=== PATIENT | female | born 1975 | race Caucasian/White ===

== ENCOUNTER 2021-11-16 22:06 | Inpatient (IN) ==
[2021-11-16 22:57] LABS: Basophils # (auto) 0.02 K/uL (0-0.2); Basophils % (auto) 0.2 %; Eosinophils # (auto) 0.01 K/uL (0-0.5); Eosinophils % (auto) 0.1 %; Hematocrit (blood only) 35.3 % (37-47); Immature Granulocytes # (auto) 0.02 K/uL (0.00-0.02); Immature Granulocytes % (auto) 0.2 %; Lymphocytes # (auto) 1.15 K/uL (1.2-3.4); Lymphocytes % (auto) 12.9 %; Mean Corpuscular Volume 91.2 fL (80-100); Mean Platelet Volume 9.1 fL (7.4-10.4); Monocytes # (auto) 0.93 K/uL (0.11-0.59); Monocytes % (auto) 10.5 %; Neutrophils # (auto) 6.76 K/uL (1.4-6.5); Neutrophils % (auto) 76.1 %; Platelet Count 227 K/uL (130-400); RDW Coefficient of Variation 16.8 % (11.5-14.5); RDW Standard Deviation 53.7 fL (36.4-46.3); Red Blood Count 3.87 M/uL (4.2-5.4); White Blood Count 8.89 K/uL (4.8-10.8)
[2021-11-16 23:19] LABS: Acetaminophen < 3 ug/ml (10-30); Salicylate < 3.0 mg/dl (3.0-30)
[2021-11-16 23:20] LABS: Albumin Globulin Ratio 1.4 (0.9-2); Albumin Level 4.2 gm/dl (3.4-5.0); Bilirubin,Total 0.5 mg/dl (0.2-1.0); Calcium 9.3 mg/dl (8.5-10.1); Creatinine Clr Calc Pharmacy 96.1 ml/min; Est GFR (African American) 136.4 ml/min; Est GFR (Non-African American) 117.7 ml/min; Potassium 3.8 mmol/L (3.5-5.1); Total Protein 7.2 gm/dl (6.0-8.3)
[2021-11-16 23:21] LABS: Pregnancy Test, Serum Negative (Negative)
[2021-11-16] MEDS ORDERED: SODIUM CHLORIDE 0.9% 1000ML 1,000 ML IV SCH (23:30)
[2021-11-16] MEDS ORDERED: LORazepam 2 MG/1 ML VIAL IM STA (23:57)
[2021-11-16] MEDS ORDERED: LORazepam 2 MG/1 ML VIAL ONE (23:58)
--- NOTE | 2021-11-16 23:58 | Emergency Department Note ---
History of Present Illness General Chief complaint: Mental Health Evaluation Time Seen by Provider: 11/16/21 23:00 Source: police and other Mode of arrival: ambulatory Limitations: patient cooperation History of Present Illness Provider complaint: Mental health evaluation This is a 46-year-old female brought in by [place] [employer] police as a 302 after patient ran away from [facility] rehab facility and found her agitated and confused and contacted police. Police came to her house and state the patient was repetitive, making bizarre statements, agitated, needed to be physically restrained by them, and her was unable to calm her down. denied any prior similar events and only prior mental health history was that of anxiety. Patient refuses to discuss why police were called and why she is here. She states "I do not want my story to change". Patient mitts to history of alcohol abuse, does not know what medication she has been given at [facility] and says "they have record of that not me". Patient states she has previously gone through alcohol withdrawal and does not feel that is happening to her. Patient denies any other concern for illness or injury. She states she does vape. Accompanying medical list from [facility] includes Prozac, vitamin B1, vitamin B12, folic acid, daily multivitamin, clonidine, Vistaril, and Valium. Pt seen during a time of high acuity and national emergency pandemic while wearing PPE. Home Medications Medication Instructions Recorded Confirmed Type Vitamin B-1 PO DAILY 11/16/21 History fluoxetine mg PO DAILY 11/16/21 History folic acid PO DAILY 11/16/21 History Allergies Allergy/AdvReac Type Severity Reaction Status Date / Time artichoke Allergy Swelling Verified 11/16/21 22:48 of Lip/Tongue/Throat cat dander Allergy Unknown Verified 11/16/21 22:48 Past Med/Surg History Medical History (Updated 11/17/21 @ 09:03 by Ирина Hudson DO) Alcohol abuse Anxiety Social History Smoking Status: Current every day smoker Tobacco Type: E-cigarettes / Vaping Hx Alcohol Use: Yes Alcohol type: beer Hx Substance Use: No Preferred Language: Khmer Current Living Situation Comment: UNKNOWN WOULD NOT ANSWER Assistive Devices: None Review of Systems See HPI for pertinent positives & negatives. All systems reviewed & are unremarkable except as noted in HPI & below Physical Exam Vital Signs Vital Signs - 24 hr 11/16/21 22:30 11/17/21 00:32 11/17/21 00:41 Temperature 37.1 C Temperature Source Oral Pulse Rate 109 H 92 H Pulse Rate [Right Finger] 89 Pulse Rhythm [Right Finger] Regular Pulse Strength [Right Finger] Normal Respiratory Rate 20 15 22 Respiratory Effort / Characteristics Non-Labored Spontaneous Non-Labored Respiratory Depth Normal Normal Respiratory Pattern Regular Blood Pressure 172/111 H Blood Pressure [Left Arm] 146/99 H Blood Pressure Mean 131 Blood Pressure Mean [Left Arm] 114 Blood Pressure Position [Left Arm] Sitting Pulse Oximetry 99 100 99 Oxygen Delivery Method Room Air Room Air Room Air Sepsis New/Unexplained Change in Mental Status N/A Sepsis Action Taken by Nursing No Action Required 11/17/21 00:45 11/17/21 01:00 11/17/21 01:15 Temperature Temperature Source Pulse Rate 104 H 96 H 103 H Pulse Rate [Right Finger] Pulse Rhythm [Right Finger] Pulse Strength [Right Finger] Respiratory Rate 21 20 16 Respiratory Effort / Characteristics Respiratory Depth Respiratory Pattern Blood Pressure Blood Pressure [Left Arm] Blood Pressure Mean Blood Pressure Mean [Left Arm] Blood Pressure Position [Left Arm] Pulse Oximetry 100 99 99 Oxygen Delivery Method Room Air Room Air Room Air Sepsis New/Unexplained Change in Mental Status Sepsis Action Taken by Nursing 11/17/21 01:30 11/17/21 01:45 11/17/21 02:00 Temperature Temperature Source Pulse Rate 120 H 94 H 96 H Pulse Rate [Right Finger] Pulse Rhythm [Right Finger] Pulse Strength [Right Finger] Respiratory Rate 20 23 20 Respiratory Effort / Characteristics Respiratory Depth Respiratory Pattern Blood Pressure Blood Pressure [Left Arm] Blood Pressure Mean Blood Pressure Mean [Left Arm] Blood Pressure Position [Left Arm] Pulse Oximetry 99 98 95 Oxygen Delivery Method Room Air Room Air Room Air Sepsis New/Unexplained Change in Mental Status Sepsis Action Taken by Nursing Patient refused to allow me to examine her GENERAL: alert, well appearing, well nourished, no distress, non-toxic EYE EXAM: normal conjunctiva, PERRL and EOM's grossly intact NEURO EXAM: Normal sensorium, cranial nerves II-XII grossly intact, normal speech, no gross weakness of arms, no gross weakness of legs. Gross sensation intact. Course Course 2345: Nursing staff finally able to obtain IV access on the patient due to concern for hyponatremia and altered mentation as described in the 302 petition. Given patient's history of alcohol abuse, concern for hyponatremia possibly contributing to agitation and confusion as reported by PSP from earlier today. 2355: Patient now ripped out her own IV. 0023: I was notified by the associate professor of radiology that a tick was found in the patient's sheets when she was moved to undergo CT scan. 0055: Discussed with Dr. Fraser. Administered Medications Enoxaparin Sodium (Enoxaparin Inj 40 Mg/0.4 Ml Syr) 40 mg SQ Q24H HOLDEN Stop: 12/17/21 08:59 Last Admin: 11/17/21 08:01 Dose: Not Given Documented by: [id number] Folic Acid (Folic Acid 1 Mg Tab) 1 mg PO QA HOLDEN Stop: 12/17/21 08:59 Last Admin: 11/17/21 08:00 Dose: 1 mg Documented by: [id number] Thiamine HCl (Thi[facility] Hcl 100 Mg Tab) [facility] Stop: 12/17/21 08:59 Last Admin: 11/17/21 08:01 Dose: 100 mg Documented by: [id number] Discontinued Medications Gabapentin (Gabapentin 1200mg Alcohol Withdrawal Load) 1 ea PO NOW STA; Protocol Stop: 11/17/21 02:15 Last Admin: 11/17/21 02:47 Dose: Not Given Documented by: [id number] Gabapentin (Gabapentin 600 Mg Tab) 1,200 mg PO NOW ONE Stop: 11/17/21 05:16 Last Admin: 11/17/21 05:58 Dose: 1,200 mg Documented by: [id number] Sodium Chloride (Nss 1000ml) 1,000 mls @ 125 mls/hr IV .Q8H HOLDEN Stop: 12/16/21 23:29 Last Admin: 11/17/21 02:47 Dose: Not Given Documented by: [id number] Lorazepam (Lorazepam 2 Mg/1 Ml Vial) 2 mg IM NOW STA Stop: 11/16/21 23:58 Last Admin: 11/17/21 00:08 Dose: 2 mg Documented by: [id number] Lorazepam (Lorazepam 2 Mg/1 Ml Vial) Confirm Administered Dose 2 mg .ROUTE .STK- MED ONE Stop: 11/16/21 23:59 Last Admin: 11/17/21 00:08 Dose: Not Given Documented by: [id number] Medical Decision Making Differential Diagnosis Differential diagnoses includes but is not limited to toxic, metabolic, infectious, traumatic, cardiac, neurologic, hematologic, psychiatric and inflammatory etiologies. Medical Records Attestation: I reviewed the patient's medical records. Home Medications Current Medication List: was personally reviewed by me Laboratory Data Attestation: I reviewed the patient's lab results. Result diagrams: 11/17/21 06:46 11/17/21 06:46 Lab Results 11/16/21 11/16/21 11/16/21 Range/Units 22:44 22:44 22:44 WBC 8.89 (4.8-10.8) K/uL RBC 3.87 L (4.2-5.4) M/uL Hgb 12.0 (12.0-16.0) g/dL Hct 35.3 L (37-47) % MCV 91.2 (80-100) fL MCH 31.0 (25-34) pg MCHC 34.0 (32-36) g/dL RDW Std Deviation 53.7 H (36.4-46.3) fL RDW Coeff of Alejo 16.8 H (11.5-14.5) % Plt Count 227 (130-400) K/uL MPV 9.1 (7.4-10.4) fL Immature Gran % (Auto) 0.2 % Neut % (Auto) 76.1 % Lymph % (Auto) 12.9 % Stephens % (Auto) 10.5 % Eos % (Auto) 0.1 % Baso % (Auto) 0.2 % Neut # (Auto) 6.76 H (1.4-6.5) K/uL Lymph # (Auto) 1.15 L (1.2-3.4) K/uL Stephens # (Auto) 0.93 H (0.11-0.59) K/uL Eos # (Auto) 0.01 (0-0.5) K/uL Baso # (Auto) 0.02 (0-0.2) K/uL Immature Gran # (Auto) 0.02 (0.00-0.02) K/uL Sodium 128 L (136-145) mmol/L Potassium 3.8 (3.5-5.1) mmol/L Chloride 94 L (98-107) mmol/L Carbon Dioxide 26 (21-32) mmol/L Anion Gap 8 (3-11) BUN 9 (6-23) mg/dl Creatinine 0.50 L (0.6-1.2) mg/dl Est Cr Clr Drug Dosing 96.1 ml/min Est GFR ( Amer) 136.4 ml/min Est GFR (Non-Af Amer) 117.7 ml/min BUN/Creatinine Ratio 18.0 (10-20) Glucose 117 H (70-99(Fasting)) mg/dl Calcium 9.3 (8.5-10.1) mg/dl Total Bilirubin 0.5 (0.2-1.0) mg/dl AST 21 (13-39) U/L ALT 12 (7-52) U/L Alkaline Phosphatase 45 (34-104) U/L Total Protein 7.2 (6.0-8.3) gm/dl Albumin 4.2 (3.4-5.0) gm/dl Globulin 3.0 (2.5-4.0) gm/dl Albumin/Globulin Ratio 1.4 (0.9-2) TSH 1.215 (0.300-4.500) uIu/ml HCG, Qual (Negative) Salicylates (3.0-30) mg/dl Acetaminophen (10-30) ug/ml Ethyl Alcohol mg/dL (<10.0) mg/dl Lyme Disease IgG Ab (Negative) Lyme Disease IgM Ab (Negative) SARS-CoV-2, RNA, NAAT (NEGATIVE) 11/16/21 11/16/21 11/16/21 Range/Units 22:44 22:44 22:44 WBC (4.8-10.8) K/uL RBC (4.2-5.4) M/uL Hgb (12.0-16.0) g/dL Hct (37-47) % MCV (80-100) fL MCH (25-34) pg MCHC (32-36) g/dL RDW Std Deviation (36.4-46.3) fL RDW Coeff of Alejo (11.5-14.5) % Plt Count (130-400) K/uL MPV (7.4-10.4) fL Immature Gran % (Auto) % Neut % (Auto) % Lymph % (Auto) % Stephens % (Auto) % Eos % (Auto) % Baso % (Auto) % Neut # (Auto) (1.4-6.5) K/uL Lymph # (Auto) (1.2-3.4) K/uL Stephens # (Auto) (0.11-0.59) K/uL Eos # (Auto) (0-0.5) K/uL Baso # (Auto) (0-0.2) K/uL Immature Gran # (Auto) (0.00-0.02) K/uL Sodium (136-145) mmol/L Potassium (3.5-5.1) mmol/L Chloride (98-107) mmol/L Carbon Dioxide (21-32) mmol/L Anion Gap (3-11) BUN (6-23) mg/dl Creatinine (0.6-1.2) mg/dl Est Cr Clr Drug Dosing ml/min Est GFR ( Amer) ml/min Est GFR (Non-Af Amer) ml/min BUN/Creatinine Ratio (10-20) Glucose (70-99(Fasting)) mg/dl Calcium (8.5-10.1) mg/dl Total Bilirubin (0.2-1.0) mg/dl AST (13-39) U/L ALT (7-52) U/L Alkaline Phosphatase (34-104) U/L Total Protein (6.0-8.3) gm/dl Albumin (3.4-5.0) gm/dl Globulin (2.5-4.0) gm/dl Albumin/Globulin Ratio (0.9-2) TSH (0.300-4.500) uIu/ml HCG, Qual Negative (Negative) Salicylates < 3.0 L (3.0-30) mg/dl Acetaminophen < 3 L (10-30) ug/ml Ethyl Alcohol mg/dL < 10.0 (<10.0) mg/dl Lyme Disease IgG Ab (Negative) Lyme Disease IgM Ab (Negative) SARS-CoV-2, RNA, NAAT (NEGATIVE) 11/16/21 11/16/21 Range/Units 22:44 Unknown WBC (4.8-10.8) K/uL RBC (4.2-5.4) M/uL Hgb (12.0-16.0) g/dL Hct (37-47) % MCV (80-100) fL MCH (25-34) pg MCHC (32-36) g/dL RDW Std Deviation (36.4-46.3) fL RDW Coeff of Alejo (11.5-14.5) % Plt Count (130-400) K/uL MPV (7.4-10.4) fL Immature Gran % (Auto) % Neut % (Auto) % Lymph % (Auto) % Stephens % (Auto) % Eos % (Auto) % Baso % (Auto) % Neut # (Auto) (1.4-6.5) K/uL Lymph # (Auto) (1.2-3.4) K/uL Stephens # (Auto) (0.11-0.59) K/uL Eos # (Auto) (0-0.5) K/uL Baso # (Auto) (0-0.2) K/uL Immature Gran # (Auto) (0.00-0.02) K/uL Sodium (136-145) mmol/L Potassium (3.5-5.1) mmol/L Chloride (98-107) mmol/L Carbon Dioxide (21-32) mmol/L Anion Gap (3-11) BUN (6-23) mg/dl Creatinine (0.6-1.2) mg/dl Est Cr Clr Drug Dosing ml/min Est GFR ( Amer) ml/min Est GFR (Non-Af Amer) ml/min BUN/Creatinine Ratio (10-20) Glucose (70-99(Fasting)) mg/dl Calcium (8.5-10.1) mg/dl Total Bilirubin (0.2-1.0) mg/dl AST (13-39) U/L ALT (7-52) U/L Alkaline Phosphatase (34-104) U/L Total Protein (6.0-8.3) gm/dl Albumin (3.4-5.0) gm/dl Globulin (2.5-4.0) gm/dl Albumin/Globulin Ratio (0.9-2) TSH (0.300-4.500) uIu/ml HCG, Qual (Negative) Salicylates (3.0-30) mg/dl Acetaminophen (10-30) ug/ml Ethyl Alcohol mg/dL (<10.0) mg/dl Lyme Disease IgG Ab Negative (Negative) Lyme Disease IgM Ab Negative (Negative) SARS-CoV-2, RNA, NAAT NEGATIVE (NEGATIVE) Imaging Data Radiologist's Impression: Head CT 11/16/21 23:28 CT head/brain wo con CLINICAL HISTORY: 46 years-old Female with ams. Acutely altered mental status TECHNIQUE: Multiple axial CT images of the head were obtained without contrast. A dose lowering technique was utilized adhering to the principles of ALARA. CT DOSE: 537.48 mGy.cm COMPARISON: None. FINDINGS: No acute intracranial hemorrhage, midline shift, intracranial mass, hydrocephalus, territorial ischemia or abnormal extra-axial collection. The calvarium is intact. Note is made of a metopic suture. The paranasal sinuses, mastoid air cells, and middle ear cavities are clear. IMPRESSION: No acute intracranial abnormality. ACT 112: Negative or not required by law. The above report was generated using voice recognition software. It may contain grammatical, syntax or spelling errors. Electronically signed by: Sorin Loyola M.D. 11/17/2021 6:[address] HEAD: No acute intracranial hemorrhage, extra-axial fluid collection or mass-effect. Ferrer-white differentiation is preserved. Under pneumatization of the frontal sinuses. Radiologist: Elsy Gudino MD MDM Narrative This is a 46-year-old female who presents emergency department with concern for abnormal behavior, agitation, and history of alcohol abuse. Patient brought in as a 302 by police due to agitated and abnormal behavior per 's report. No evidence of trauma on limited exam and patient refused additional bedside exam. Vital signs stable. Patient was initially noncompliant. Patient was given Ativan IM to help decrease agitation and to allow for additional testing to better evaluate her condition including head CT. Head CT unremarkable. Patient was found to be hyponatremic, no old labs for comparison. Given history of alcohol abuse it is unclear if this is related to her abuse of alcohol or evolving withdrawal. Given her accompanying paranoia and intermittent confusion although patient was oriented to person, place, and time during my initial evaluation, case was discussed with hospitalist for additional evaluation and management. No evidence of delirium tremens at this time. An order was placed for continuous cardiac monitoring. The monitor shows a rate of _102_ with _sinus tachycardia_ rhythm. Impression & Plan Altered mental status, Alcohol abuse, Hyponatremia Discharge Plan Visit Data Chief Complaint: Mental Health Evaluation ED Provider: Ирина Hudson Discharge Problem: Altered mental status, Alcohol abuse, Hyponatremia Patient Disposition: Admitted As Inpatient Discharge Instructions Interventions: ED Discharge Assessment Last Done: 11/17/21 04:27 Discharge Problem: Altered mental status Qualifiers: Altered mental status type: unspecified Qualified Code(s): R41.82 - Altered mental status, unspecified
[2021-11-17 01:33] LABS: Lyme Ab IgG w/WB Rflx Negative (Negative); Lyme Ab IgM w/WB Rflx Negative (Negative)
[2021-11-17] MEDS ORDERED: GABAPENTIN 1200MG ALCOHOL WITHDRAWAL LOAD PO STA (02:14)
[2021-11-17] MEDS ORDERED: LORazepam 2 MG/1 ML VIAL IM PRN (02:15)
[2021-11-17] MEDS ORDERED: ONDANSETRON INJ 2 MG/ML 2 ML VIAL IV PRN (04:52)
[2021-11-17] MEDS ORDERED: NITROGLYCERIN SL 0.4 MG/TAB TAB SL PRN (04:52)
[2021-11-17] MEDS ORDERED: LORazepam 1 MG TAB PO PRN (04:52)
[2021-11-17 05:01] LABS: Appearance Urine Clear (Clear); Bacteria Urine Automated Negative (Negative); Bilirubin Urine Negative (Negative); Blood Urine Trace (Negative); Cast Urine Automated 0 /lpf (0-5); Color Urine Yellow; Glucose Urine UA Negative (Negative); Ketones Urine Trace (Negative); Leukocyte Esterase Urine Negative (Negative); Nitrite Urine Negative (Negative); Protein Urine Negative (Negative); RBC Urine Automated 0-4 /hpf (0-4); Specific Gravity Urine 1.006 (1.000-1.030); Urobilinogen Urine Negative (Negative); WBC Urine Automated 0 /hpf (0-5)
[2021-11-17] MEDS ORDERED: GABAPENTIN 600 MG TAB PO ONE (05:15)
[2021-11-17 05:28] LABS: Amphetamines+Metham, Urine Neg (Neg); Barbiturates, Urine Neg (Neg); Benzodiazepine, Urine Neg (Neg); Cocaine, Urine Neg (Neg); MDMA (Ecstacy), Urine Neg (Neg); Methadone, Urine Neg (Neg); Opiate, Urine Neg (Neg); Phencyclidine, Urine Neg (Neg)
--- NOTE | 2021-11-17 06:49 | CT Scan Report ---
CT head/brain wo con CLINICAL HISTORY: 46 years-old Female with ams. Acutely altered mental status TECHNIQUE: Multiple axial CT images of the head were obtained without contrast. A dose lowering tech nique was utilized adhering to the principles of ALARA. CT DOSE: 537.48 mGy.cm COMPARISON: None. FINDINGS: No acute intracranial hemorrhage, midline shift, intracranial mass, hydrocephalus, territorial ischem ia or abnormal extra-axial collection. The calvarium is intact. Note is made of a metopic suture. The paranasal sinuses, mastoid air cells, and middle ear cavities are clear. IMPRESSION: No acute intracranial abnormality. ACT 112: Negative or not required by law. The above report was generated using voice recognition software. It may contain grammatical, syntax o r spelling errors. Electronically signed by: Sorin Loyola M.D. 11/17/2021 6:47 AM
[2021-11-17 07:12] LABS: Basophils # (auto) 0.01 K/uL (0-0.2); Basophils % (auto) 0.2 %; Eosinophils # (auto) 0.03 K/uL (0-0.5); Eosinophils % (auto) 0.5 %; Hematocrit (blood only) 36.3 % (37-47); Hemoglobin 12.5 g/dL (12.0-16.0); Immature Granulocytes # (auto) 0.01 K/uL (0.00-0.02); Immature Granulocytes % (auto) 0.2 %; Lymphocytes # (auto) 1.13 K/uL (1.2-3.4); Lymphocytes % (auto) 18.2 %; Mean Corpuscular Hemoglobin 31.5 pg (25-34); Mean Corpuscular Hgb Conc 34.4 g/dL (32-36); Mean Corpuscular Volume 91.4 fL (80-100); Mean Platelet Volume 9.2 fL (7.4-10.4); Monocytes % (auto) 12.9 %; Neutrophils # (auto) 4.22 K/uL (1.4-6.5); Platelet Count 220 K/uL (130-400); RDW Coefficient of Variation 16.7 % (11.5-14.5); RDW Standard Deviation 54.2 fL (36.4-46.3); Red Blood Count 3.97 M/uL (4.2-5.4)
[2021-11-17 07:28] LABS: Albumin Level 4.1 gm/dl (3.4-5.0); Bilirubin Direct 0.1 mg/dl (0-0.2); Bilirubin,Total 0.5 mg/dl (0.2-1.0); Calcium 9.2 mg/dl (8.5-10.1); Creatinine Clr Calc Pharmacy 123.1 ml/min; Est GFR (African American) 143.4 ml/min; Est GFR (Non-African American) 123.7 ml/min; Magnesium 1.9 mg/dl (1.7-2.4); Potassium 3.5 mmol/L (3.5-5.1); Total Protein 7.1 gm/dl (6.0-8.3)
--- NOTE | 2021-11-17 07:58 | History and Physical Report ---
DATE OF ADMISSION: 11/16/2021. CHIEF COMPLAINT: Alcoholism, agitation. HISTORY OF PRESENT ILLNESS: This is a 46-year-old female with past medical history significant for anxiety, alcoholism, who was brought in because of agitation. The patient seems to have been admitted to [facility] rehab facility seems on last Monday for alcoholism and looks like she eloped and her found her agitated and confused and contacted police and she was making some repetitive statements, confused even for the police and they had to restrain her to calm her down and did 302 and brought her here. Initially, she did not give much history to the ER physician. She received some IM Ativan. She pulled out the IV line. Currently, resting comfortably and hemodynamically stable. She says she did not go home, she was just walking uphill from rehab when the oceanographer physical caught her and brought her here. Denies any headache. No blurred visions. Denies any earache or runny nose or sore throat. No nausea, no chest pain, no shortness of breath, no cough, no fevers, no abdominal pain. Normal bowel and bladder movements as per the patient. The patient states her last drink was last Monday. Refused to have a new IV line. Okay to stay in the hospital for alcohol withdrawals. ALLERGIES: CAT DANDER. PAST MEDICAL HISTORY: As mentioned above. PAST SURGICAL HISTORY: . MEDICATIONS: The patient is on fluoxetine, folic acid, and thiamine. FAMILY HISTORY: Unknown. SOCIAL HISTORY: Drinks alcohol, vapes cigarettes with menthol. Denies any drug use. REVIEW OF SYSTEMS: As per HPI. Rest of review of systems is negative. PHYSICAL EXAMINATION: GENERAL: The patient is of moderate build, not in acute distress. VITAL SIGNS: Temperature 37.1, pulse 104, respiratory rate 21, blood pressure 146/99, oxygen 100% on room air. HEENT: Pupils equal, round and reactive to light. Oral mucosa moist. NECK: No JVD. No neck masses. CARDIOVASCULAR: S1 and S2 heard. Regular rate and rhythm. No murmur, no gallop. RESPIRATORY SYSTEM: Normal AP diameter. No accessory muscle use. No wheezing, no crackles. ABDOMEN: Soft, bowel sounds present, nontender, no distention. CENTRAL NERVOUS SYSTEM: Cranial nerves II-XII grossly intact, nonfocal. EXTREMITIES: No edema, no erythema. LABORATORY DATA: WBC 8.8, hemoglobin 12, hematocrit 35.3, platelets 227. Sodium 128, potassium 3.8, chloride 94, bicarbonate 26, BUN 9, creatinine 0.5, serum glucose 117, calcium 9.3, total bilirubin 0.5, AST 21, ALT 22, alkaline phosphatase 45. TSH 1.2. HCG qualitative negative. Salicylate less than 3, acetaminophen less than 3. Ethyl alcohol less than 10. Lyme disease IgG and IgM negative. SARS-CoV-2 RNA negative. IMAGING DATA: CT of the head, preliminary report unremarkable. ASSESSMENT AND PLAN: This 46-year-old female presents with agitation, history of alcoholism, brought in for agitation. 1. History of alcoholism: Monitor for alcohol withdrawal. Currently, took out the IV line. We will place her on gabapentin p.o. protocol and Ativan p.o. protocol and IM Ativan p.r.n. thiamine p.o. and folic acid p.o. and closely monitor in [facility] tele. 2. Agitation: Could be from alcohol withdrawal, could be from underlying psychiatric illness. She is on fluoxetine for anxiety . Consult psychiatry in the a.m. for further recommendations. Closely monitor in the med tele. One on one observation. 3. Hyponatremia: Received fluids in the ER. Currently, does not have IV line. Will follow serum osmolality in the next labs and urine osmolality and urine sodium levels and follow the repeat labs in the a.m. probably from her beer potomania from alcoholism. 5. Deep venous thrombosis prophylaxis: Sequential compression devices for now. DISPOSITION: Closely monitor in the [facility] tele. PT/OT prior to discharge. Social service to help with discharge planning. Level 1 full code. Job ID: [id number] [facility]
[2021-11-17] MEDS: FOLIC ACID 1 MG TAB PO SCH (08:00)
[2021-11-17] MEDS: ENOXAPARIN INJ 40 MG/0.4 ML SYR SQ SCH (08:01)
[2021-11-17] MEDS: THIAMINE HCL 100 MG TAB PO SCH (08:01)
[2021-11-17] MEDS: GABAPENTIN 600 MG TAB PO SCH ×2 (11:31→17:36)
--- NOTE | 2021-11-17 11:43 | Hospitalist Progress Note ---
Date of Service November 17, 2021 Assessment & Plan (1) Hyponatremia: (2) Alcohol abuse: (3) Anxiety: Plan: Alcohol abuse- She was voluntarily in [facility] on Monday before she left. States last drink Monday. Low risk of withdrawal at this point if her history is correct. Continue alcohol withdrawal protocol for now. Continue folate, thiamine, multivitamin. Psych evaluation pending Agitation- CT head unremarkable, labs including toxicology not significant. Currently calm and cooperative. On 1:1 currently. Psych evaluation pending. Hyponatremia- improved with IVF, recheck in am Anxiety- On prozac, will continue DVT propylaxis- sc lovenox Dispo- Pending psych evaluation Admission and Anticipated Discharge Date Admission Date: November 17, 2021 Subjective Patient was seen and examined at bedside. On 1:1. States she feels scared that she does not know what is going on, that there is a staff in her room all the time and she does not know why. States she remembers everything up until now. States she checked in voluntarily at [facility] on Monday [place] and then went back in. She again went out and called 911. She denies any fever, chills, chest pain, shortness of breath, nausea, vomiting, diarrhea. States her last drink was on Monday. Vapes while drinking but denies any other substance abuse. I reassured her and explained her the plan. She wanted me to revisit her later today. Physical Exam Physical Exam: General: Lying comfortably in bed, not in distress, on room air HEENT: EOMI, NATALIA, MMM Chest: Clear breath sounds bilaterally, no wheezes or crackles CVS: Regular rate and rhythm, normal heart sounds, no murmur Abdomen: Soft, non tender, not distended, normal bowel sounds Neuro: Awake, alert, oriented, conversing well, non focal Extremities: No cyanosis, clubbing or edema Results & Data Results & Data ([facility]) Vital Signs (Past 12 Hours) Vital Signs Temp Pulse Pulse Resp BP BP BP 11/17/21 11:29 37 C 81 20 113/77 11/17/21 07:54 36.7 C 108 H 20 111/74 11/17/21 07:23 62 11/17/21 05:42 103 H 11/17/21 04:53 36.6 C 95 H 16 108/74 11/17/21 04:27 88 16 108/71 11/17/21 04:00 91 H 16 11/17/21 02:45 93 H 20 11/17/21 02:30 97 H 19 11/17/21 02:15 96 H 19 11/17/21 02:00 96 H 20 11/17/21 01:45 94 H 23 11/17/21 01:30 120 H 20 11/17/21 01:15 103 H 16 11/17/21 01:00 96 H 20 11/17/21 00:45 104 H 21 11/17/21 00:41 89 22 146/99 H 11/17/21 00:32 92 H 15 Pulse Ox 11/17/21 11:29 98 11/17/21 07:54 100 11/17/21 07:23 11/17/21 05:42 11/17/21 04:53 100 11/17/21 04:27 100 11/17/21 04:00 99 11/17/21 02:45 98 11/17/21 02:30 93 11/17/21 02:15 92 11/17/21 02:00 95 11/17/21 01:45 98 11/17/21 01:30 99 11/17/21 01:15 99 11/17/21 01:00 99 11/17/21 00:45 100 11/17/21 00:41 99 11/17/21 00:32 100 Laboratory Results Short CBC 11/16/21 11/17/21 Range/Units 22:44 06:46 WBC 8.89 6.20 (4.8-10.8) K/uL Hgb 12.0 12.5 (12.0-16.0) g/dL Hct 35.3 L 36.3 L (37-47) % Plt Count 227 220 (130-400) K/uL BMP 11/16/21 11/17/21 22:44 06:46 Sodium 128 L 131 L Potassium 3.8 3.5 Chloride 94 L 98 Carbon Dioxide 26 25 BUN 9 6 Creatinine 0.50 L 0.43 L Glucose 117 H 96 Calcium 9.3 9.2 Liver Function 11/16/21 11/17/21 Range/Units 22:44 06:46 Total Bilirubin 0.5 0.5 (0.2-1.0) mg/dl Direct Bilirubin 0.1 (0-0.2) mg/dl AST 21 22 (13-39) U/L ALT 12 13 (7-52) U/L Alkaline Phosphatase 45 44 (34-104) U/L Albumin 4.2 4.1 (3.4-5.0) gm/dl Urine 11/17/21 Range/Units 04:49 Urine Color Yellow Urine Appearance Clear (Clear) Urine pH 7.0 (4.5-7.5) Ur Specific [place] 1.006 (1.000-1.030) Urine Protein Negative (Negative) Urine Glucose (UA) Negative (Negative) Diagnostic Findings Head CT 11/16/21 23:28 CT head/brain wo con CLINICAL HISTORY: 46 years-old Female with ams. Acutely altered mental status TECHNIQUE: Multiple axial CT images of the head were obtained without contrast. A dose lowering technique was utilized adhering to the principles of ALARA. CT DOSE: 537.48 mGy.cm COMPARISON: None. FINDINGS: No acute intracranial hemorrhage, midline shift, intracranial mass, hydrocephalus, territorial ischemia or abnormal extra-axial collection. The calvarium is intact. Note is made of a metopic suture. The paranasal sinuses, mastoid air cells, and middle ear cavities are clear. IMPRESSION: No acute intracranial abnormality. ACT 112: Negative or not required by law. The above report was generated using voice recognition software. It may contain grammatical, syntax or spelling errors. Electronically signed by: Sorin Loyola M.D. 11/17/2021 6:47 AM Medications Administered Current Inpatient Medications Enoxaparin Sodium (Enoxaparin Inj 40 Mg/0.4 Ml Syr) 40 mg SQ Q24H [facility] Stop: 12/17/21 08:59 Last Admin: 11/17/21 08:01 Dose: Not Given Documented by: Fluoxetine HCl (Fluoxetine Hcl 20 Mg Cap) 40 mg PO QAM [facility] Stop: 12/17/21 11:44 Folic Acid (Folic Acid 1 Mg Tab) 1 mg PO QAM [facility] Stop: 12/17/21 08:59 Last Admin: 11/17/21 08:00 Dose: 1 mg Documented by: Gabapentin (Gabapentin 600 Mg Tab) 600 mg PO Q6H [facility] Stop: 11/17/21 18:01 Last Admin: 11/17/21 11:31 Dose: 600 mg Documented by: Gabapentin (Gabapentin 600 Mg Tab) 600 mg PO Q8H [facility] Stop: 11/18/21 22:01 Gabapentin (Gabapentin 600 Mg Tab) 600 mg PO Q12H [facility] Stop: 11/19/21 22:01 Gabapentin (Gabapentin 600 Mg Tab) 600 mg PO Q24H [facility] Stop: 11/20/21 22:01 Lorazepam (Lorazepam 2 Mg/1 Ml Vial) 2 mg IM Q2H PRN PRN Reason: Agitation Stop: 12/17/21 02:14 Lorazepam (Lorazepam 1 Mg Tab) 1 - 3 mg PO UD PRN; Protocol PRN Reason: EtoH Withdrawal AWSS 6-10+ Stop: 12/17/21 04:51 Nitroglycerin (Nitroglycerin Sl 0.4 Mg/Tab Tab) 0.4 mg SL UD PRN PRN Reason: Chest Pain Stop: 12/17/21 04:51 Ondansetron HCl (Ondansetron Inj 2 Mg/Ml 2 Ml Vial) 4 mg IV Q6H PRN PRN Reason: Nausea Stop: 12/17/21 04:51 Thiamine HCl (Thiamine Hcl 100 Mg Tab) 100 mg PO QAM [facility] Stop: 12/17/21 08:59 Last Admin: 11/17/21 08:01 Dose: 100 mg Documented by:
[2021-11-17] MEDS ORDERED: FLUoxetine HCL 20 MG CAP PO SCH (11:45)
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
--- NOTE | 2021-11-18 06:07 | Electrocardiogram Report ---
Test Reason : Blood Pressure : / mmHG Vent. Rate : 094 BPM Atrial Rate : 094 BPM P-R Int : 172 ms QRS Dur : 082 ms QT Int : 396 ms P-R-T Axes : 071 086 071 degrees QTc Int : 495 ms Normal sinus rhythm Prolonged QT Abnormal ECG No previous ECGs available Confirmed by Aaron Samaniego ([id number]) on 11/18/2021 6:07:01 AM Referred By: REFERRED SELF Confirmed By:Aaron Samaniego
[2021-11-18] MEDS: GABAPENTIN 600 MG TAB PO SCH ×3 (06:12→21:25)
[2021-11-18 08:29] LABS: BUN Creatinine Ratio 14.3 (10-20); Calcium 9.3 mg/dl (8.5-10.1); Creatinine Clr Calc Pharmacy 108.1 ml/min; Est GFR (African American) 137.3 ml/min; Est GFR (Non-African American) 118.5 ml/min; Phosphorus 4.2 mg/dl (2.5-4.9); Potassium 3.8 mmol/L (3.5-5.1)
[2021-11-18] MEDS: FOLIC ACID 1 MG TAB PO SCH (08:52)
[2021-11-18] MEDS: ENOXAPARIN INJ 40 MG/0.4 ML SYR SQ SCH (08:52)
[2021-11-18] MEDS: THIAMINE HCL 100 MG TAB PO SCH (08:52)
[2021-11-18] MEDS ORDERED: ENOXAPARIN INJ 40 MG/0.4 ML SYR SQ SCH (09:00)
--- NOTE | 2021-11-18 15:10 | Hospitalist Progress Note ---
Date of Service November 18, 2021 Assessment & Plan (1) Hyponatremia: (2) Alcohol abuse: (3) Anxiety: Plan: Alcohol abuse- She was voluntarily in [facility] on Monday before she left. States last drink Monday. Continue alcohol withdrawal protocol for now. On gabapentin taper. Continue folate, thiamine, multivitamin. Seen by psych and CM. Plan to discharge to inpatient rehab from here once medically clear. She has been making some calls herself. Agitation- Resolved, CT head unremarkable, labs including toxicology not significant. Currently calm and cooperative. On 1:1 currently. Seen by psych Hyponatremia- improving to 133, recheck in am Anxiety- Prozac on hold per psychiatry. DVT propylaxis- sc lovenox Dispo- Plan to discharge to inpatient rehab in 1-2 days. She is currently on 302 warrant so unable to leave AMA Admission and Anticipated Discharge Date Admission Date: November 17, 2021 Subjective Patient was seen and examined at bedside. She is feeling better. She was talking to the rehab over the phone just before my encounter. She feels that she would be going to the rehab soon. States she does not have proper clothes with her and her has to bring them but he is an hour away, he is an accountant manager and is busy as it is the tax season. She had questions about fatty liver, gallbladder and pancreas and they were answered. No other issues. Physical Exam Physical Exam: General: Sitting comfortably in bed, not in distress, on room air HEENT: EOMI, NATALIA, MMM Chest: Clear breath sounds bilaterally, no wheezes or crackles CVS: Regular rate and rhythm, normal heart sounds, no murmur Abdomen: Soft, non tender, not distended, normal bowel sounds Neuro: Awake, alert, oriented, conversing well, non focal Extremities: No cyanosis, clubbing or edema Results & Data Results & Data ([facility]) Vital Signs (Past 12 Hours) Vital Signs Temp Pulse Pulse Resp BP Pulse Ox 11/18/21 07:22 36.9 C 71 16 102/63 100 11/18/21 07:18 75 Laboratory Results BMP 11/18/21 07:16 Sodium 133 L Potassium 3.8 Chloride 99 Carbon Dioxide 29 BUN 7 Creatinine 0.49 L Glucose 101 H Calcium 9.3 Medications Administered Current Inpatient Medications Enoxaparin Sodium (Enoxaparin Inj 40 Mg/0.4 Ml Syr) 40 mg SQ Q24H [facility] Stop: 12/17/21 08:59 Last Admin: 11/18/21 08:52 Dose: Not Given Documented by: Folic Acid (Folic Acid 1 Mg Tab) 1 mg PO QAM [facility] Stop: 12/17/21 08:59 Last Admin: 11/18/21 08:52 Dose: 1 mg Documented by: Gabapentin (Gabapentin 600 Mg Tab) 600 mg PO Q8H [facility] Stop: 11/18/21 22:01 Last Admin: 11/18/21 14:22 Dose: 600 mg Documented by: Gabapentin (Gabapentin 600 Mg Tab) 600 mg PO Q12H [facility] Stop: 11/19/21 22:01 Gabapentin (Gabapentin 600 Mg Tab) 600 mg PO Q24H [facility] Stop: 11/20/21 22:01 Lorazepam (Lorazepam 2 Mg/1 Ml Vial) 2 mg IM Q2H PRN PRN Reason: Agitation Stop: 12/17/21 02:14 Lorazepam (Lorazepam 1 Mg Tab) 1 - 3 mg PO UD PRN; Protocol PRN Reason: EtoH Withdrawal AWSS 6-10+ Stop: 12/17/21 04:51 Nitroglycerin (Nitroglycerin Sl 0.4 Mg/Tab Tab) 0.4 mg SL UD PRN PRN Reason: Chest Pain Stop: 12/17/21 04:51 Ondansetron HCl (Ondansetron Inj 2 Mg/Ml 2 Ml Vial) 4 mg IV Q6H PRN PRN Reason: Nausea Stop: 12/17/21 04:51 Thiamine HCl (Thiamine Hcl 100 Mg Tab) 100 mg PO [facility] Stop: 12/17/21 08:59 Last Admin: 11/18/21 08:52 Dose: 100 mg Documented by:
[2021-11-19 07:37] LABS: BUN Creatinine Ratio 14.5 (10-20); Calcium 9.2 mg/dl (8.5-10.1); Creatinine Clr Calc Pharmacy 96.2 ml/min; Est GFR (African American) 132.2 ml/min; Est GFR (Non-African American) 114.1 ml/min; Potassium 3.9 mmol/L (3.5-5.1)
[2021-11-19] MEDS: ENOXAPARIN INJ 40 MG/0.4 ML SYR SQ SCH (11:20)
[2021-11-19] MEDS: FOLIC ACID 1 MG TAB PO SCH (11:22)
[2021-11-19] MEDS: THIAMINE HCL 100 MG TAB PO SCH (11:22)
[2021-11-19] MEDS: GABAPENTIN 600 MG TAB PO SCH ×2 (11:22→22:15)
--- NOTE | 2021-11-19 12:45 | Hospitalist Progress Note ---
Date of Service November 19, 2021 Assessment & Plan (1) Hyponatremia: (2) Alcohol abuse: (3) Anxiety: Plan: Alcohol abuse- She was voluntarily in [facility] on Monday before she left. States last drink Monday. No signs of withdrawal, on gabapentin taper. Continue folate, thiamine, multivitamin. Psych following. Agitation- Resolved, CT head unremarkable, labs including toxicology not significant. Currently calm and cooperative. On 1:1 currently. Seen by psych Hyponatremia- resolved, no need for further check. Anxiety- Prozac on hold per psychiatry. DVT prophylaxis- ri lovenox Dispo- Medically stable for discharge. Will coordinate with psych whether she can go directly to alcohol rehab or she needs to go to some inpatient psych facility prior to that. She is currently on 302 warrant so unable to leave AMA Admission and Anticipated Discharge Date Admission Date: November 17, 2021 Subjective Patient was seen and examined at bedside. States she had a panic attack this morning when she woke up because all the staff were knew and there was no familiar face around. Now much better. Tearful briefly during my encounter. No signs of withdrawal. Denies any new issues. Feels ready to go to the rehab. Discussed with psych liasion regarding the discharge plan. Physical Exam Physical Exam: General: Sitting comfortably in bed eating breakfast, not in distress, on room air HEENT: EOMI, NATALIA, MMM Chest: Clear breath sounds bilaterally, no wheezes or crackles CVS: Regular rate and rhythm, normal heart sounds, no murmur Abdomen: Soft, non tender, not distended, normal bowel sounds Neuro: Awake, alert, oriented, conversing well, non focal Extremities: No cyanosis, clubbing or edema Results & Data Results & Data ([facility]) Vital Signs (Past 12 Hours) Vital Signs Pulse 11/19/21 00:59 78 Laboratory Results BMP 11/19/21 06:35 Sodium 135 L Potassium 3.9 Chloride 101 Carbon Dioxide 28 BUN 8 Creatinine 0.55 L Glucose 105 H Calcium 9.2 Medications Administered Current Inpatient Medications Enoxaparin Sodium (Enoxaparin Inj 40 Mg/0.4 Ml Syr) 40 mg SQ Q24H [facility] Stop: 12/17/21 08:59 Last Admin: 11/19/21 11:20 Dose: Not Given Documented by: Folic Acid (Folic Acid 1 Mg Tab) 1 mg PO QAM [facility] Stop: 12/17/21 08:59 Last Admin: 11/19/21 11:22 Dose: 1 mg Documented by: Gabapentin (Gabapentin 600 Mg Tab) 600 mg PO Q12H [facility] Stop: 11/19/21 22:01 Last Admin: 11/19/21 11:22 Dose: 600 mg Documented by: Gabapentin (Gabapentin 600 Mg Tab) 600 mg PO Q24H [facility] Stop: 11/20/21 22:01 Lorazepam (Lorazepam 2 Mg/1 Ml Vial) 2 mg IM Q2H PRN PRN Reason: Agitation Stop: 12/17/21 02:14 Lorazepam (Lorazepam 1 Mg Tab) 1 - 3 mg PO UD PRN; Protocol PRN Reason: EtoH Withdrawal AWSS 6-10+ Stop: 12/17/21 04:51 Nitroglycerin (Nitroglycerin Sl 0.4 Mg/Tab Tab) 0.4 mg SL UD PRN PRN Reason: Chest Pain Stop: 12/17/21 04:51 Ondansetron HCl (Ondansetron Inj 2 Mg/Ml 2 Ml Vial) 4 mg IV Q6H PRN PRN Reason: Nausea Stop: 12/17/21 04:51 Thiamine HCl (Thiamine Hcl 100 Mg Tab) 100 mg PO QAM [facility] Stop: 12/17/21 08:59 Last Admin: 11/19/21 11:22 Dose: 100 mg Documented by:
[2021-11-19] MEDS ORDERED: haloperidoL 1 MG TAB PO PRN (13:38)
--- NOTE | 2021-11-19 15:03 | Psychiatric Progress Note ---
Date of Service November 19, 2021 Impression / Recommendations Impression This is a 46 yo old admitted for alcohol use disorder and altered mental status. Diagnostically consistent with encephalopathy/hyperactive delirium likely d/t alcohol withdrawal. Significant improvement this afternoon, still some tearfulness but no other symptoms of delirium. Recommend continuing monitoring for delirium, as it can wax and wane, and if no further reoccurrence then agree with plan for residential substance use treatment. Does not meet criteria for 302-no evidence of current ronen, psychosis, delirium, denies SI and HI and not interested in inpatient psych tx nor deemed to need this given improvement in delirium. Once medically cleared if she remains stable without any new psych symptoms will dispo 302 warrant. Acute risk is low given denial of SI. -1-on-1 given confusion/agitation earlier this morning from suspected delirium -[address], may not leave AMA -Consider haldol 2.5 mg po if delirium reoccurs. Could give second dose of 2.5 mg po if necessary for total of 5mg if needed. -Consider melatonin 3mg qhs -AWSS with thiamine and folic acid -Continue medical workup to rule out and treat any underlying causes contributing to potential delirium, avoid or limit use of deliriogenic medications (benzodiazepines, opioids, anticholinergics) -Continue with delirium prevention measures: raising blinds during the day, closing at night, frequent re-orientation, contact with family/friends, explaining procedures/nursing care measures prior to physical contact, correct any hearing and visual impairments -For behavioral emergency: haldol 5 mg IM x 1 (DO NOT exceed 10mg per 24 hours, check EKG if IM dose required). -They do not meet criteria for inpatient psychiatric hospitalization as primary cause of current symptoms is felt to be due to delirium -Agree with plan for residential substance use tx once medically stable and delirium has fully resolved (1) Encephalopathy: (2) Alcohol use disorder: (3) Altered mental status: (4) Hyponatremia: see above Interval History Identifying Information 46 yo woman with history of alcohol use disorder and hearing impairment admitted to [facility] after she left her residential substance use treatment facility and had a disorganized encounter with police. Consult is by hospitalist service for agitation and alcohol use Chief Complaint "I had a stress response, I feel better now I want treatment for my alcohol use". Review of Systems Notes endorses stable sleep and appetite. Subjective Subjective Patient was seen & assessed and interval progress reviewed. Very anxious this morning and suspicious of medical floor staff after getting blood draw. Discussed recent events. She agrees she was not acting like herself and suspects this was due to withdrawing from alcohol and feeling unsafe due to event at [facility]. She denies SI "I love my life and my kids" and denies HI. Fully oriented this afternoon and denies symptoms of ronen and psychosis. Remains motivated to seek residential tx for substance use.Has been talking with her who is going to bring in her hearing aids. Physical Exam Psychiatric Orientation: alert and oriented x 3 Apperance: appropriately dressed and appropriately groomed Eye Contact: good eye contact Motor Behavior: no abnormal motor movements Speech: normal rate/rhythm/volume of speech Affect: + tearful affect Mood: + anxious mood; no depressed mood Thought Process: goal directed thought process Thought Content: reality based without delusions Suicidal Thoughts: denies suicidal thoughts Homicidal Thoughts: denies homicidal thoughts Hallucinations: no auditory hallucinations and no visual hallucinations Cognition: recent memory grossly intact, remote memory grossly intact, attention grossly intact and language grossly intact Estimated Intelligence: consistent with education level Insight: + fair insight Judgement: + fair judgement Vital Signs (Past 24 Hours) Last Vital Signs Temp 36.3 C L 11/18/21 22:17 Pulse 68 11/19/21 08:00 Resp 18 11/18/21 22:17 BP 117/70 11/18/21 22:17 Pulse Ox 99 11/18/21 22:17 Results & Data (U) Laboratory Results Laboratory Results - last 24 hr 11/19/21 06:35 Sodium 135 L Potassium 3.9 Chloride 101 Carbon Dioxide 28 Anion Gap 6 BUN 8 Creatinine 0.55 L Est Cr Clr Drug Dosing 96.2 Est GFR ( Amer) 132.2 Est GFR (Non-Af Amer) 114.1 BUN/Creatinine Ratio 14.5 Glucose 105 H Calcium 9.2 Current Inpatient Medications Current Inpatient Medications: Current Inpatient Medications Enoxaparin Sodium (Enoxaparin Inj 40 Mg/0.4 Ml Syr) 40 mg SQ Q24H [facility] Stop: 12/17/21 08:59 Last Admin: 11/19/21 11:20 Dose: Not Given Documented by: Folic Acid (Folic Acid 1 Mg Tab) 1 mg PO QAM [facility] Stop: 12/17/21 08:59 Last Admin: 11/19/21 11:22 Dose: 1 mg Documented by: Gabapentin (Gabapentin 600 Mg Tab) 600 mg PO Q12H [facility] Stop: 11/19/21 22:01 Last Admin: 11/19/21 11:22 Dose: 600 mg Documented by: Gabapentin (Gabapentin 600 Mg Tab) 600 mg PO Q24H [facility] Stop: 11/20/21 22:01 Haloperidol (Haloperidol 1 Mg Tab) 2.5 mg PO DAILY PRN PRN Reason: agitation/delirium Stop: 12/19/21 13:37 Lorazepam (Lorazepam 1 Mg Tab) 1 - 3 mg PO UD PRN; Protocol PRN Reason: EtoH Withdrawal AWSS 6-10+ Stop: 12/17/21 04:51 Nitroglycerin (Nitroglycerin Sl 0.4 Mg/Tab Tab) 0.4 mg SL UD PRN PRN Reason: Chest Pain Stop: 12/17/21 04:51 Ondansetron HCl (Ondansetron Inj 2 Mg/Ml 2 Ml Vial) 4 mg IV Q6H PRN PRN Reason: Nausea Stop: 12/17/21 04:51 Thiamine HCl (Thiamine Hcl 100 Mg Tab) 100 mg PO QAM [facility] Stop: 12/17/21 08:59 Last Admin: 11/19/21 11:22 Dose: 100 mg Documented by: (1) Altered mental status Altered mental status type: unspecified Qualified Code(s): R41.82 - Altered mental status, unspecified
[2021-11-20] MEDS: THIAMINE HCL 100 MG TAB PO SCH (09:08)
[2021-11-20] MEDS: FOLIC ACID 1 MG TAB PO SCH (09:08)
[2021-11-20] MEDS: ENOXAPARIN INJ 40 MG/0.4 ML SYR SQ SCH (09:08)
[2021-11-20] MEDS ORDERED: FLUoxetine HCL 20 MG CAP PO SCH (09:30)
--- NOTE | 2021-11-20 11:48 | Psychiatric Progress Note ---
Date of Service November 20, 2021 Impression / Recommendations Impression This is a 46 yo old admitted for alcohol use disorder and altered mental status. Diagnostically consistent with encephalopathy/hyperactive delirium likely d/t alcohol withdrawal. Significant improvement this afternoon, still some tearfulness but no other symptoms of delirium. Recommend continuing monitoring for delirium, as it can wax and wane, and if no further reoccurrence then agree with plan for residential substance use treatment. Does not meet criteria for 302-no evidence of current ronen, psychosis, delirium, denies SI and HI and not interested in inpatient psych tx nor deemed to need this given improvement in delirium. Once medically cleared if she remains stable without any new psych symptoms will dispo 302 warrant. Acute risk is low given denial of SI. 11/20/21: Delirium resolved with no further episodes of paranoia/mood lability. Does not meet 302 criteria-not delirious, no SI, no HI, no evidence of ronen nor psychosis so warrant was disposition. She is voluntary for residential substance use tx. Restart fluoxetine at 20mg for 3 days then increase to 40mg qd. Sodium improved significantly, would recheck in a few weeks to ensure it does not reoccur with re-initiation of fluoxetine. -can discontinue 1:1 -302 warrant canceled -restart fluoxetine 20mg for 3 days then increase to prior to admission dose of 40mg qd. -appropriate for discharge to residential substance use tx. (1) Encephalopathy: (2) Alcohol use disorder: (3) Altered mental status: (4) Hyponatremia: see above Interval History Identifying Information 46 yo woman with history of alcohol use disorder and hearing impairment admitted to [facility] after she left her residential substance use treatment facility and had a disorganized encounter with police. Consult is by hospitalist service for agitation and alcohol use Chief Complaint "I'm ready for rehab". Review of Systems Notes Stable sleep and appetite. Subjective Subjective Patient was seen & assessed and interval progress reviewed. Slept well last night. brought her glasses and hearing aids and she's relieved to be hearing well again. Denies any episodes of confusion yesterday nor today. Feels her mood is stable and expresses gratitude for help she received at hospital. Remains on board with plan for residential alcohol use tx. Would like to restart fluoxetine, discussed titration of 20mg for 3 days then increase back to 40mg. She denies SI and HI. Physical Exam Psychiatric Orientation: alert and oriented x 3 Apperance: appropriately dressed and appropriately groomed Eye Contact: good eye contact Motor Behavior: no abnormal motor movements Speech: normal rate/rhythm/volume of speech Mood: + anxious mood; no depressed mood Thought Process: goal directed thought process Thought Content: reality based without delusions Suicidal Thoughts: denies suicidal thoughts Homicidal Thoughts: denies homicidal thoughts Hallucinations: no auditory hallucinations and no visual hallucinations Cognition: recent memory grossly intact, remote memory grossly intact, attention grossly intact and language grossly intact Estimated Intelligence: consistent with education level Insight: + fair insight Judgement: + fair judgement Vital Signs (Past 24 Hours) Last Vital Signs Temp 36.5 C 11/20/21 03:04 Pulse 67 11/20/21 09:56 Resp 20 11/20/21 03:04 BP 107/72 11/20/21 03:04 Pulse Ox 100 11/20/21 04:00 Results & Data ([facility]) Current Inpatient Medications Current Inpatient Medications: Current Inpatient Medications Enoxaparin Sodium (Enoxaparin Inj 40 Mg/0.4 Ml Syr) 40 mg SQ Q24H [facility] Stop: 12/17/21 08:59 Last Admin: 11/20/21 09:08 Dose: Not Given Documented by: Fluoxetine HCl (Fluoxetine Hcl 20 Mg Cap) 20 mg PO QAM [facility] Stop: 12/20/21 09:29 Last Admin: 11/20/21 10:01 Dose: 20 mg Documented by: Folic Acid (Folic Acid 1 Mg Tab) 1 mg PO QAM [facility] Stop: 12/17/21 08:59 Last Admin: 11/20/21 09:08 Dose: 1 mg Documented by: Gabapentin (Gabapentin 600 Mg Tab) 600 mg PO Q24H [facility] Stop: 11/20/21 22:01 Haloperidol (Haloperidol 1 Mg Tab) 2.5 mg PO DAILY PRN PRN Reason: agitation/delirium Stop: 12/19/21 13:37 Lorazepam (Lorazepam 1 Mg Tab) 1 - 3 mg PO UD PRN; Protocol PRN Reason: EtoH Withdrawal AWSS 6-10+ Stop: 12/17/21 04:51 Nitroglycerin (Nitroglycerin Sl 0.4 Mg/Tab Tab) 0.4 mg SL UD PRN PRN Reason: Chest Pain Stop: 12/17/21 04:51 Ondansetron HCl (Ondansetron Inj 2 Mg/Ml 2 Ml Vial) 4 mg IV Q6H PRN PRN Reason: Nausea Stop: 12/17/21 04:51 Thiamine HCl ([facility]amine Hcl 100 Mg Tab) [facility] [place]: 12/17/21 08:59 Last Admin: 11/20/21 09:08 Dose: 100 mg Documented by: (1) Altered mental status Altered mental status type: unspecified Qualified Code(s): R41.82 - Altered mental status, unspecified
--- NOTE | 2021-11-20 14:06 | Discharge Summary ---
Date of Service November 20, 2021 Admission HPI Per Admitting Provider This is a 46-year-old female with past medical history significant for anxiety, alcoholism, who was brought in because of agitation. The patient seems to have been admitted to [facility] rehab facility seems on last Monday for alcoholism and looks like she eloped and her found her agitated and confused and contacted police and she was making some repetitive statements, confused even for the police and they had to restrain her to calm her down and did 302 and brought her here. Initially, she did not give much history to the ER physician. She received some IM Ativan. She pulled out the IV line. Currently, resting comfortably and hemodynamically stable. She says she did not go home, she was just walking uphill from rehab when the card assembler caught her and brought her here. Denies any headache. No blurred visions. Denies any earache or runny nose or sore throat. No nausea, no chest pain, no shortness of breath, no cough, no fevers, no abdominal pain. Normal bowel and bladder movements as p er the patient. The patient states her last drink was last Monday. Refused to have a new IV line. Okay to stay in the hospital for alcohol withdrawals. Admission Exam Per Admitting Provider GENERAL: The patient is of moderate build, not in acute distress. VITAL SIGNS: Temperature 37.1, pulse 104, respiratory rate 21, blood pressure 146/99, oxygen 100% on room air. HEENT: Pupils equal, round and reactive to light. Oral mucosa moist. NECK: No JVD. No neck masses. CARDIOVASCULAR: S1 and S2 heard. Regular rate and rhythm. No murmur, no gallop. RESPIRATORY SYSTEM: Normal AP diameter. No accessory muscle use. No wheezing, no crackles. ABDOMEN: Soft, bowel sounds present, nontender, no distention. CENTRAL NERVOUS SYSTEM: Cranial nerves II-XII grossly intact, nonfocal. EXTREMITIES: No edema, no erythema. Principal Diagnosis Encephalopathy/hyperactive delirium, alcohol abuse Discharge Exam General: Sitting comfortably in bed, not in distress, on room air HEENT: EOMI, NATALIA, MMM. Hearing aids in place Chest: Clear breath sounds bilaterally, no wheezes or crackles CVS: Regular rate and rhythm, normal heart sounds, no murmur Abdomen: Soft, non tender, not distended, normal bowel sounds Neuro: Awake, alert, oriented, conversing well, non focal Extremities: No cyanosis, clubbing or edema Discharge Data Allergies Allergy/AdvReac Type Severity Reaction Status Date / Time artichoke Allergy Swelling Verified 11/16/21 22:48 of Lip/Tongue/Throat cat dander Allergy Unknown Verified 11/16/21 22:48 Consultations 11/17/21 00:56 ED Decision to Admit Stat 11/17/21 04:52 Consult Psychiatry Routine Ordered Studies 11/16/21 23:28 CT head/brain wo con Urgent Hospital Course (1) Hyponatremia: (2) Alcohol abuse: (3) Anxiety: Alcohol abuse- She was voluntarily in [facility] on Monday before she left. States last drink Monday. No signs of withdrawal, s/p gabapentin taper. Continue folate, thiamine, multivitamin. Agitation/?encephalopathy/ ? hyperactive delirium- Resolved, CT head unremarkable, labs including toxicology not significant. Lyme negative. UA negative. Currently calm and cooperative. Seen by psych - cleared for discharge to alcohol rehab Hyponatremia- resolved Anxiety- resumed on prozac 20 mg daily to be increased to 40 mg daily after 3 days Total Time Total Time Spent Total Time Spent (In Minutes): 20 Discharge Plan Discharge Items Patient Disposition: Drug & Alcohol Rehab Reason For Visit: MENTAL HEALTH EVAL Discharge Diagnosis: Acute encephalopathy/hyperactive delirium, alcohol abuse Activity: Resume your previous activity Non-emergency contact: Primary Care Provider Call non-emergency contact if: you have any medication questions Follow-up/Referrals: Ramona Green M.D. [Primary Care Provider] - Diet: Regular Addtl Attending Provider Instructions: We have resumed your prozac at 20 mg daily. You can increase to 40 mg daily after 3 days. Continue thiamine, folate and multivitamin. We wish you all the best. Pending Studies at Discharge: No Stand-Alone Forms: My [facility] Skilled Items Patient informed of condition?: Yes DNR: No Discharge Level of Care: Other Communicable Disease: No Discharge Prognosis: Stable Lines: None Urinary Catheter: No Medications and DC Order Prescriptions: New thiamine HCl (vitamin B1) 100 mg Tablet 100 mg PO QAM Qty: 30 RF: 0 folic acid 1 mg Tablet 1 mg PO QAM Qty: 30 RF: 0 Changed fluoxetine 20 mg Tablet 20 mg PO UD Qty: 60 RF: 0 Discontinued Vitamin B-1 PO DAILY RF: 0 folic acid PO DAILY RF: 0 Discharge Orders: Discharge Order (Routine); Ordered 11/20/21 Ordered By: Rocael Valdez Admission Data Admit Date/Time: 11/17/21 02:14 Attending Provider: Rocael Valdez Admit Provider: Waldo Fraser Primary Care Provider: Ramona Green Other Providers: Waldo Fraser ; Sharri Gonzalez ; Cathryn Guidry ; Nataliia Ya
[2021-11-20] MEDS ORDERED: GABAPENTIN 600 MG TAB PO SCH (22:00)
[2021-11-23 13:08] LABS: Ehrlichia chaff DNA Bld Negative (Negative)
== END 2021-11-20 14:55 | disposition alcohol treatment (31) | DRG 897 ==
LOC: ED 22:06 → 2W 11-17 02:14
DX: G93.40 Encephalopathy, unspecified; E87.1 Hypo-osmolality and hyponatremia; F41.9 Anxiety disorder, unspecified; Z88.5 Allergy status to narcotic agent; J30.81 Allergic rhinitis due to animal (cat) (dog) hair and dander; F10.239 Alcohol dependence with withdrawal, unspecified